=== PATIENT | female | born 1950 | race Caucasian/White ===

== ENCOUNTER → 2016-12-13 | Outpatient (CLI) | payer OTHER, MEDICARE ==
[~2016-12-13] MED LIST: ACTOS 45 MG45 M1 PO; ALBUTEROL INH; ALPRAZOLAM1 M1 PO; BREO ELLIPTA 11 EACH IH; CENTRUM COMPLE1 EACH PO; COZAAR 50 MG TA50 M2 PO; LEVEMIR SUBQ; NORFLEX100 MG PO; NOVOLOG100 UNIT/1 SUBQ; PROTONIX40 M2 PO; SYNTHROID137 MCG PO; SYNTHROID25 MCG PO; TOPROL XL25 MG PO; VASOTEC10 MG PO; VITAMIN D31000 UNI2 PO; ZOLOFT100 MG PO
== END ==
LOC: RAD 13:14
DX: Z12.31 Encounter for screening mammogram for malignant neoplasm of breast (principal)

== ENCOUNTER 2017-03-18 13:45 | Emergency (ER) | payer OTHER, MEDICARE ==
[~2017-03-18] VITALS: Ht 162.6 cm; Wt 93.9 kg
[2017-03-18] MEDS ORDERED: MACROBID 100 M100 M3 (14:24)
[2017-03-18] MEDS ORDERED: XANAX1 MG PO (14:25)
[2017-03-18] MEDS ORDERED: PROTONIX40 M3 PO (14:25)
[2017-03-18] MEDS ORDERED: LEVOTHYROXINE 0.15MG PO (14:25)
[2017-03-18] MEDS ORDERED: NOVOLOG100 UNIT/1 SUBQ (14:26)
[2017-03-18 15:34] VITALS: BP 156/80
== END 2017-03-18 15:36 | disposition home or self-care (01) ==
LOC: ER
DX: F43.0 Acute stress reaction (principal); F41.9 Anxiety disorder, unspecified; F32.9 Major depressive disorder, single episode, unspecified; E11.9 Type 2 diabetes mellitus without complications; J45.909 Unspecified asthma, uncomplicated; I10 Essential (primary) hypertension; K21.9 Gastro-esophageal reflux disease without esophagitis; Z79.4 Long term (current) use of insulin; Z90.710 Acquired absence of both cervix and uterus; Z88.8 Allergy status to other drugs, medicaments and biological substances; Z91.041 Radiographic dye allergy status; Z88.1 Allergy status to other antibiotic agents; Z88.4 Allergy status to anesthetic agent

== ENCOUNTER → 2017-12-20 | Outpatient (CLI) | payer OTHER, MEDICARE ==
[~2017-12-20] MED LIST changes: +LEVOTHYROXINE 0.15MG PO; +MACROBID 100 M100 M3; +PROTONIX40 M3 PO; +XANAX1 MG PO
== END ==
LOC: RAD 01:56
DX: Z12.31 Encounter for screening mammogram for malignant neoplasm of breast (principal)

== ENCOUNTER → 2018-12-21 | Outpatient (CLI) | payer OTHER, MEDICARE | LOC: RAD 13:03 | DX: Z12.31 Encounter for screening mammogram for malignant neoplasm of breast (principal) ==